=== PATIENT | female | born 1960 | race Caucasian/White ===

== ENCOUNTER 2019-02-12 08:15 | Outpatient (RCR) ==
--- NOTE | 2019-01-24 13:35 | RS.OPPTEV2 ---
Date of Note: 01/23/19 Visit #: 1 Number of visits approved by Insurance: pending Date of Evaluation: 01/23/19 Payer Source: Medicaid Date of Onset/Injury/Change in Status: 12/21/18 Surgery Performed?: No Treatment Diagnosis: pain in R knee, muscle weakness, History of Condition/Mechanism of Injury:: pt suffered a fall landing on R knee. MD placed pt in immobilizer, however has not seen ortho MD. pt has appt on 03/08/19 with ortho MD. Prior Level of Function.....Patient was independent with: ADL's, Self Care, Work /Vocation, Caregiving, Ambulation/Mobility, Community Integration/Access Functional Limitations: Sleep, Squatting, Ambulation, Community Access/ Integration Current Subjective/complaints:: pt states she is still having swelling in R knee. States she is concerned because pain and swelling continue to be an issue. 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), Arthritis (OA, RA) Medical History Comments:: fibromyalgia, Surgical History: Hysterectomy Surgical History Comments:: 3 surgeries on L rotator cuff, L wrist fx ORIF Smoking Status: Never smoker Hx Home Medications: plavix, lisinopril, atorvastatin, amolodipine, aspirin, tramadol Patient's Goals: decrease R knee pain Pain Assessment - Pain Description Pain Location: R knee pain Pain Description: Burning, Sharp, Aching Current Pain Intensity: 5/10 Worst Pain Intensity: 10/10 Functional Outcome Measure LE Functional Scale: 20 - G Codes & Severity Modifier G Codes & Modifier: n/a Source of G Code score: n/a Observation - Observation Posture: Forward Head, Rounded Shoulders Handedness: Right Girth Measurement Lower: R knee 38.5cm. 10 cm below knee 36cm. L knee 37cm. 10cm below 35cm Gait - Gait Pattern General Gait Pattern Observation: Antalgic Gait, Decrease Stride Lngth (R), Decrease Stride Lngth (L) Gait Comments: pt amb with decreased step length, antalgic gait. pt amb without AD with knee support in place. General Range of Motion: BUE WFL's with pain in L shld. LLE WFL's. RLE hip flex WFL's , knee flex/ext limited, ankle WFL's Muscle Strength: RUE 5/5. LUE shld flex 3+/5, elbow flex/ext 4+/5,. LLE 5/5. RLE hip flex 4-/5, ankle 4/5 Knee ROM: Left WFL's Knee Muscle Strength: Left WFL's - Right Knee ROM Right Knee Extension: -9 Right Knee Flexion: 91 Knee ROM Limitations: Soft Tissue Tightness, Muscle Weakness, Pain - Right Knee Strength Right Knee Extension: 3- Fair- Right Knee Flexion: 3- Fair- - Special Tests Knee Jared Test: Negative Right Patella Apprehension Test: Negative Right Patellar Compression Test: Negative Right Patella J-sign: Negative Right Comments: very difficult to perform special tests due to pain with light palpation to R knee. Palpation Palpation Findings: Tenderness Comments:: pt with tenderness to light palpation of R knee especially lat and post knee Sensation - Sensation Right Upper Extremity: Intact/Normal Left Upper Extremity: Intact/Normal Right Lower Extremity: Intact/Normal Left Lower Extremity: Intact/Normal Balance - Sitting Balance Static Sitting Balance: Normal Dynamic Sitting Balance: Normal - Standing Balance Static Standing Balance: Good Dynamic Standing Balance: Good - Heat/Cryotherapy Treatment: Cryotherapy Comments:: R knee Interventions - Exercise/Activities/Manual Therapy Exercises/Activities: pt performed RLE QS, SLR, hip abd/add, hamstring set Manual Therapy: n/a HOME EXERCISE PROGRAM: pt given written HEP including QS, Ham set, SLR, hip abd/ add - Charges Timed Code Treatment Minutes: 49 Total Treatment Time: 61 Procedures billed for this date of service:: eval med, ex EVALUATION COMPLEXITY LEVEL EVALUATION COMPLEXITY LEVEL: HISTORY: Medium, EXAM OF BODY SYSTEMS: Medium, CLINICAL PRESENTATION: Medium, CLINICAL DECISION MAKING: Medium Assessment Assessment: pt presents with decreased ROM R knee, edema R knee, decreased strength, decreased gait ability, pain R knee s/p fall. Feel pt would benefit from skilled PT for therex for ROM, strengthening, edema management to improve functional mobility Patient Education: Home Exercise Program, Education of Plan of Care Rehab Potential: Good Short Term Goals Goal #1: pt indepenent with initial HEP Goal to be met by: 02/08/19 Goal #2: Decrease edema R knee Goal to be met by: 02/08/19 Goal #3: pt rate pain < 5/10 R knee Goal to be met by: 02/08/19 Goal #4: Improve R knee ROM flex 95 ext -5 Goal to be met by: 02/08/19 Custodial Goals Goal #1: Improve R knee ROM flex 100 ext 0 Goal to be met by: 02/22/19 Goal #2: pt report increased abililty to perform normal daily activities w less pain Goal to be met by: 02/22/19 Goal #3: Improve strength R LE 4 to 4+/5 Goal to be met by: 02/22/19 Goal #4: Ascend/descend steps with less pain Goal to be met by: 02/22/19 Plan - Treatment to be Provided Procedures: Therapeutic Exercises, Therapeutic Activity, Manual Therapy, Patient Education Modalities: Electrical Stimulation, Ultrasound/Phonophoresis, Cryotherapy, Hot Packs - Treatment Plan Frequency: 2-3x a week Duration: 4 weeks Dates of Custodial Goals: 02/22/19 Expiration date of current Insurance Approval:: pending - Treatment Code (1) Right knee pain Code(s): M25.561 - PAIN IN RIGHT KNEE Qualifiers: Chronicity: acute Qualified Code(s): M25.561 - Pain in right knee (2) Effusion of right knee joint Code(s): M25.461 - EFFUSION, RIGHT KNEE (3) Muscle weakness Code(s): M62.81 - MUSCLE WEAKNESS (GENERALIZED) (4) Joint stiffness of knee Qualifiers: Laterality: right Qualified Code(s): M25.661 - Stiffness of right knee, not elsewhere classified
--- NOTE | 2019-01-29 16:38 | RS.OPPTDN ---
Subjective Date of Note: 01/29/19 Visit #: 2 Number of visits approved by Insurance: requested 8, pending Date of Evaluation: 01/23/19 Payer Source: Medicaid Treatment Diagnosis: pain in R knee, muscle weakness, Current Subjective/complaints:: Patient says that she didn't want to take her pain medication when driving to therapy. She says her pain is mostly at the back of the knee and the medial area. Reports that it seems to be getting better slowly. Reports still difficult to get sleep as she only is able to get comfortable ~2 hours every night. States she will talk to her MD to verify if she can drive while taking her pain meds. *Precautions: n/a - Treatment Modality: Electrical Stim Unattended Parameters/Method Applied: hivolt 4 small pads surrounding the R knee @ 135 pk volts x 20 mins after therex Patient Position: Supine - Heat/Cryotherapy Treatment: Cryotherapy Comments:: with estim Interventions - Exercise/Activities/Manual Therapy Exercises/Activities: Patient receives gentle passive hamstring and heel cord stretching to the R LE. PROM for the R knee followed by: AROM of Heel slides, QS, SAQ, AA SLR, Hip abd/add, finished with more ROM. Began education of diagnosis, avoiding twisting at the knee, explaination of therex performed today and modalities. Patient will be talking to MD about taking pain medication prior to attending PT. Total minutes of Exercise: 18 Manual Therapy: n/a HOME EXERCISE PROGRAM: pt given written HEP including QS, Ham set, SLR, hip abd/ add - Charges Timed Code Treatment Minutes: 18 Total Treatment Time: 38 Procedures billed for this date of service:: cp, estim (un), ex Assessment: Patient presents with amb to dept using SC on the R side. She has a hx of L shoulder pain and sx so she prefers that side for AD. She seems to peter all therex with some fatigue and grimace, but with rest breaks, symptoms decrease. She should improve with further modalities and therex to improve her mobility and pain. Patient Education: Education of diagnosis, Body/Joint mechanics, Home Exercise Program, Education of Plan of Care Patient demonstrates compliance with HEP?: Yes Short Term Goals Goal #1: pt indepenent with initial HEP Goal to be met by: 02/08/19 Progress towards Goal:: Progressing Goal #2: Decrease edema R knee Goal to be met by: 02/08/19 Goal #3: pt rate pain < 5/10 R knee Goal to be met by: 02/08/19 Goal #4: Improve R knee ROM flex 95 ext -5 Goal to be met by: 02/08/19 Half-Way Goals Goal #1: Improve R knee ROM flex 100 ext 0 Goal to be met by: 02/22/19 Goal #2: pt report increased abililty to perform normal daily activities w less pain Goal to be met by: 02/22/19 Goal #3: Improve strength R LE 4 to 4+/5 Goal to be met by: 02/22/19 Goal #4: Ascend/descend steps with less pain Goal to be met by: 02/22/19 Plan Dates of Orthotic Aide Goals: 02/22/19 Expiration date of current Insurance Approval:: 02/22/19 PLAN: Continue BIW
--- NOTE | 2019-01-31 11:30 | RS.CXNS ---
Date of scheduled appointment: 01/31/19 Type: No Show Reason for Cancel/NS: NCNS
--- NOTE | 2019-02-05 11:48 | RS.OPPTDN ---
Subjective Date of Note: 02/05/19 Visit #: 3 Number of visits approved by Insurance: pending, requested 8 Date of Evaluation: 01/23/19 Payer Source: Medicaid Treatment Diagnosis: pain in R knee, muscle weakness, Current Subjective/complaints:: Patient says she has fallen "a few times" since she has been to therapy last. She states one fall resulted with her hitting the R side of her head and suffered bruising. She reports she has been getting dizzy and also feels like her R knee "gives out." She reports she does feel less pain in the knee overall and believes treatment is helping, but asks that we try heat because the cold aggravates her fibromyalgia. *Precautions: n/a - Treatment Modality: Electrical Stim Unattended Parameters/Method Applied: Hivolt 4 large pads controlled vertically along the medial, lateral knee @ 135-145 pk volts x 20 mins PRIOR to therex. Patient Position: Supine - Heat/Cryotherapy Treatment: Hot Pack (over the R knee with estim ) Interventions - Exercise/Activities/Manual Therapy Exercises/Activities: Patient receives gentle passive hamstring and heel cord stretching to the R LE. PROM for the R knee followed by: AROM of Heel slides, QS, SAQ, AA SLR, Hip abd/add, finished with more ROM. Pillow squeezes x 8, LAQ x 10. Continue with education of diagnosis, avoiding twisting at the knee. Total minutes of Exercise: 22 Manual Therapy: n/a HOME EXERCISE PROGRAM: pt given written HEP including QS, Ham set, SLR, hip abd/ add - Charges Timed Code Treatment Minutes: 22 Total Treatment Time: 42 Procedures billed for this date of service:: hp, estim (un), ex Assessment: Patient has had 2+ falls in the past week, one resulting with hitting her head. She is having less R knee pain in general, but continues to have weakness to the R knee allowing her to feel unsafe with ambulation. She is able to peter all therex here and appears to be more relaxed with ROM and gentle stretching resulting in improved flexibility. She seemed to do better today with trying heat and estim prior to therex today rather than ice/estim afterwards. 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
--- NOTE | 2019-02-07 10:17 | RS.OPPTDN ---
Subjective Date of Note: 02/07/19 Visit #: 4 Number of visits approved by Insurance: Pending, requested 8 Date of Evaluation: 01/23/19 Payer Source: Medicaid Treatment Diagnosis: pain in R knee, muscle weakness, Current Subjective/complaints:: Patient says she has had another fall in her hallway. She says she didn't get dizzy, but unaware of how or why it happened. Reports she hit the R side of her head on the door frame and then the L shoulder. States she has bruising and broke her glasses. She says she has not been seen in the ER or notified her MD. Strongly encouraged her to contact her MD and she may go to the ER since she has hit her head twice. *Precautions: n/a Pain Assessment - Pain Description Pain Location: Pain is at the R lateral/posterior knee and medial knee - Treatment Modality: Electrical Stim Unattended Parameters/Method Applied: Hivolt 4 large pads at the R medial knee and 2 at the posterior/lateral knee @ 135-155 pk volts x 13 mins (Abbreviated due to patient being late) Patient Position: Supine - Heat/Cryotherapy Treatment: Hot Pack (wrapped around the R knee with estim) Interventions - Exercise/Activities/Manual Therapy Exercises/Activities: Modified treatment somewhat due to limited time. Patient receives gentle passive hamstring and heel cord stretching to the R LE. PROM for the R knee followed by: AROM of QS, SAQ added 1#, AA SLR, Hip abd with red tband in hooklying, pillow squeezes. All x 10 reps. Provided red tband for home to perform hooklying hip abd with original HEP. Continue with education of diagnosis, avoiding twisting at the knee. Encouraged her to speak with her MD about continued falls or go to the ER. Total minutes of Exercise: 15 Manual Therapy: n/a HOME EXERCISE PROGRAM: pt given written HEP including QS, Ham set, SLR, hip abd/ add - Charges Timed Code Treatment Minutes: 15 Total Treatment Time: 33 Procedures billed for this date of service:: Hp, estim (un), EX Assessment: Patient has had another fall since her last session, hitting the R side of her head once more and L shoulder. She has healing bruising to her head just above the ear. She is finding relief and improved stability to the R knee. She continues to wear her brace to stabilize during ambulation and is compliant with HEP. Patient Education: Education of diagnosis, Home Exercise Program, Home Safety Patient demonstrates compliance with HEP?: Yes (patient given red tband for hook hip abd) Short Term Goals Goal #1: pt indepenent with initial HEP Goal to be met by: 02/08/19 Progress towards Goal:: Progressing Goal #2: Decrease edema R knee Goal to be met by: 02/08/19 Progress towards Goal:: Progressing Goal #3: pt rate pain < 5/10 R knee Goal to be met by: 02/08/19 Progress towards Goal:: Progressing Comments:: / voiced today Goal #4: Improve R knee ROM flex 95 ext -5 Goal to be met by: 02/08/19 Progress towards Goal:: Partially Met Comments:: 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
--- NOTE | 2019-02-12 10:56 | RS.OPPTDN ---
Subjective Date of Note: 02/12/19 Visit #: 5 Number of visits approved by Insurance: Requested 8 Date of Evaluation: 01/23/19 Payer Source: Medicaid Treatment Diagnosis: pain in R knee, muscle weakness, Current Subjective/complaints:: Patient says she has had no falls since last week. States that her knee is getting straighter and feels a little more stable. She reports she is taking her neoprene brace off at home some, but still does not feel good about walking without it. She is performing HEP 2-3 times daily. States she is driving "ok" using R LE for accelerator and L for brake. *Precautions: n/a - Treatment Modality: Electrical Stim Unattended Parameters/Method Applied: Hivolt 2 large pads to the lateral posterior R knee and 2 to the medial aspect @ 95-110 pk volts x 20 mins PRIOR to therex Patient Position: Supine - Heat/Cryotherapy Treatment: Hot Pack Comments:: wrapped around the R knee mostly posterior Interventions - Exercise/Activities/Manual Therapy Exercises/Activities: Patient receives assisted stretching of HS, heel cords. AAROM for flex/ext. She performs QS, heel slides, ball squeezes (hooklying hip add), hip abd hooklying with green tband, ham curls and DF with green tband, SAQ 1 1/2#, all 2x10 reps. SLR (assisted first set 2x8). LAQ x 10 reps. Reviewed anatomy of the R knee, diagnosis, avoiding twisting the knee, heel strike, and removing brace some throughout the day. Discussed safety with driving as well. Total minutes of Exercise: 25 Manual Therapy: n/a HOME EXERCISE PROGRAM: pt given written HEP including QS, Ham set, SLR, hip abd/ add - Charges Timed Code Treatment Minutes: 25 Total Treatment Time: 45 Procedures billed for this date of service:: hp, estim (un), ex Assessment: Patient has maintained no falls since mid last week. She is able to demo improved knee extension now to -2 to 3 on average. She is able to perform SAQ with weight more controlled and less fatigue with SLR. She is trying to wean from her brace very slowly. Continues to amb with SC on the R side due to L shoulder hx. Little to no swelling is noted at the R knee today, but continues to have pain mostly at the posterior lateral knee. Patient Education: Education of diagnosis, Body/Joint mechanics, Home Exercise Program, Home Safety Patient demonstrates compliance with HEP?: Yes Short Term Goals Goal #1: pt indepenent with initial HEP Goal to be met by: 02/08/19 Progress towards Goal:: Progressing Goal #2: Decrease edema R knee Goal to be met by: 02/08/19 Progress towards Goal:: Progressing Goal #3: pt rate pain < 5/10 R knee Goal to be met by: 02/08/19 Progress towards Goal:: Progressing Goal #4: Improve R knee ROM flex 95 ext -5 Goal to be met by: 02/08/19 Progress towards Goal:: Partially Met [facility] Goals Goal #1: Improve R knee ROM flex 100 ext 0 Goal to be met by: 02/22/19 Goal #2: pt report increased abililty to perform normal daily activities w less pain Goal to be met by: 02/22/19 Goal #3: Improve strength R LE 4 to 4+/5 Goal to be met by: 02/22/19 Goal #4: Ascend/descend steps with less pain Goal to be met by: 02/22/19 Plan Dates of Quality Auditor Goals: 02/22/19 Expiration date of current Insurance Approval:: 02/22/19 PLAN: Continue x 3 more sessions until 02/22/19
--- NOTE | 2019-02-14 08:38 | RS.CXNS ---
Date of scheduled appointment: 02/14/19 Type: Cancel Reason for Cancel/NS: sick
== END 2019-02-19 23:59 ==
PROVIDERS: ATTEND Physician Assistant
DX: M25.561 Pain in right knee (principal)